=== PATIENT | male | born 1955 | race Caucasian/White ===

== ENCOUNTER 2017-12-30 09:15 | Emergency (ER) | payer BC ==
[2017-12-30 09:26] VITALS: BP 97/79
[2017-12-30] MEDS ORDERED: OXYCODONE-ACETAMINOPHEN 5-325 MG TABLET PO ONE (09:55)
--- NOTE | 2017-12-30 10:09 | ER Document Report ---
ED Extremity Problem, Lower - General Chief Complaint: Foot Injury Stated Complaint: FOOT INJURY Time Seen by Provider: 12/30/17 09:55 Mode of Arrival: Ambulatory Information source: Patient TRAVEL OUTSIDE OF THE [place] IN LAST 30 DAYS: No - HPI Patient complains to provider of: Other - Pain and swelling in the left foot 2 days after slipping through a floor board. Notes that it began to hurt and swell thereafter however he was able to bear weight on it. Denies any trauma elsewhere loss of consciousness pain numbness or weakness. Does have a history of peripheral neuropathy and does state that as a result has not probably hurt as much as it should. Has no significant surgical history has no significant medical history is seen regularly by and is a cigarette smoker. - Related Data Allergies/Adverse Reactions: codeine [Codeine] Allergy (Intermediate, Verified 12/30/17 09:20) rash Past Medical History - General Information source: Patient - Social History Smoking Status: Current Every Day Smoker Frequency of alcohol use: Occasional Drug Abuse: None Family History: Reviewed & Not Pertinent Patient has suicidal ideation: No Patient has homicidal ideation: No Renal/ Medical History: Denies: Hx Peritoneal Dialysis Past Surgical History: Reports: Hx Orthopedic Surgery - right rotator - Immunizations Hx Diphtheria, Pertussis, Tetanus Vaccination: Yes Review of Systems - Review of Systems -: Yes All other systems reviewed and negative Physical Exam - Vital signs Vitals: Temp Pulse Resp BP Pulse Ox 97.7 F 83 18 97/79 L 98 12/30/17 09:21 12/30/17 09:21 12/30/17 09:21 12/30/17 09:21 12/30/17 09:21 - General General appearance: Appears well In distress: None - HEENT Head: Normocephalic Eyes: Normal Conjunctiva: Normal Cornea: Normal Extraocular movements intact: Yes - Respiratory Respiratory status: No respiratory distress Chest status: Nontender Breath sounds: Normal Chest palpation: Normal - Cardiovascular Rhythm: Regular Heart sounds: Normal auscultation Murmur: No - Abdominal Inspection: Normal - Back Back: Normal - Extremities Foot: Other - Left foot is markedly swollen in comparison to the right, the swelling extends from the midfoot distally, there is marked tenderness along the metatarsal of the second digit, third digit, fourth digit No calcaneus tenderness, no medial or lateral malleoli or tenderness, no tenderness at the base of the fifth metatarsal - Neurological Neuro grossly intact: Yes Cognition: Normal Orientation: AAOx4 Hardeep Coma Scale Eye Opening: Spontaneous Hardeep Coma Scale Verbal: Oriented Hardeep Coma Scale Motor: Obeys Commands Hardeep Coma Scale Total: 15 Speech: Normal Cranial nerves: Normal Cerebellar coordination: Normal Motor strength normal: LUE, RUE, LLE, RLE Course - Re-evaluation Re-evalutation: Gentleman with pain and swelling in the left foot following a fall. Examination is no malleolar tenderness, no proximal fibular tenderness, no calcaneus tenderness no tenderness at the base of the fifth metatarsal. Tenderness through the second and third metatarsals. Plan will be for this patient undergo x-ray imaging with some analgesia while waiting. X-ray identifies a fracture of the second metatarsal as well as the third metatarsal and at the base of the first phalange. We will plan for this patient to undergo orthopedic evaluation, contacted Dr. Gutierrez. 12/30/17 10:51 Dr. Gutierrez agrees to see the patient in office, suggested a posterior splint. We will place patient in splint will give crutches teaching and will give a brief prescription of oral narcotic medication. Do not believe this represents a Lisfranc injury though it is not possible to entirely rule out given that we are not able to do weightbearing films. Patient will be seen in the orthopedics clinic for further evaluation. 12/30/17 11:00 - Vital Signs Vital signs: Temp Pulse Resp BP Pulse Ox 97.7 F 83 18 97/79 L 98 12/30/17 09:21 12/30/17 09:21 12/30/17 09:21 12/30/17 09:21 12/30/17 09:21 Discharge - Discharge Clinical Impression: Foot fracture, left Qualifiers: Encounter type: initial encounter Fracture type: closed Qualified Code(s): S92.902A - Unspecified fracture of left foot, initial encounter for closed fracture Fall Qualifiers: Encounter type: initial encounter Qualified Code(s): W19.XXXA - Unspecified fall, initial encounter Condition: Good Disposition: HOME, SELF-CARE Instructions: Use of Crutches (OM), Foot Fracture (OM) Additional Instructions: Your seen today in the emergency department for your broken foot. He had evaluation including a physical exam and x-rays. Your given crutches. Follow-up with the orthopedist this week for further evaluation of your broken foot. Return for worsening swelling, pain, inability to walk or feel your foot. Prescriptions: Hydrocodone/Acetaminophen [[place] 5-325 mg Tablet] 1 tab PO Q8H PRN #20 tablet PRN Reason: Forms: Smoking Cessation Education Referrals: MOOSE GUTIERREZ MD [ACTIVE STAFF] - Follow up in 1 week
--- NOTE | 2017-12-30 10:35 | RADIOLOGY REPORT (SQ) ---
EXAM DESCRIPTION: FOOT LEFT COMPLETE COMPLETED DATE/TIME: 12/30/2017 10:09 am REASON FOR STUDY: pain and swelling post fall COMPARISON: None. NUMBER OF VIEWS: Three views. TECHNIQUE: AP, lateral and oblique radiographic images acquired of the left foot. LIMITATIONS: None. FINDINGS: MINERALIZATION: Normal. BONES: Comminuted nondisplaced fracture distal 2nd metatarsal shaft. Nondisplaced fracture head of 3 rd metatarsal. Nondisplaced fracture medial margin base of 3rd metatarsal. Nondisplaced fracture la teral margin base of proximal 1st phalanx. JOINTS: Intact. SOFT TISSUES: Metal foreign bodies overlying the soft tissues plantar aspect proximal 5th metatarsal. OTHER: No other significant finding. IMPRESSION: Multiple fractures as described above. Metal foreign bodies. TECHNICAL DOCUMENTATION: JOB ID: [id number] [employer]- All Rights Reserved Reading location - IP/workstation name: [email or web address]
== END 2017-12-30 11:30 | disposition home or self-care (01) ==
LOC: ER 09:15
DX: S92.325A Nondisplaced fracture of second metatarsal bone, left foot, initial encounter for closed fracture (principal); S92.335A Nondisplaced fracture of third metatarsal bone, left foot, initial encounter for closed fracture; M79.672 Pain in left foot; W13.3XXA Fall through floor, initial encounter; G62.9 Polyneuropathy, unspecified; F17.210 Nicotine dependence, cigarettes, uncomplicated
CPT/HCPCS: 99283

== ENCOUNTER 2018-10-21 12:21 | Emergency (ER) | payer BC ==
--- NOTE | 2018-10-21 12:58 | ER Document Report ---
ED Medical Screen (RME) - General Chief Complaint: Laceration Stated Complaint: LACERATION Time Seen by Provider: 10/21/18 12:52 Mode of Arrival: Ambulatory Information source: Patient TRAVEL OUTSIDE OF THE [place]. IN LAST 30 DAYS: No - HPI Notes: 10/21/18 12:55 63-year-old male presents the ED for evaluation of a laceration to his left thumb from a razor blade approximately 2 hours ago. Bleeding is controlled. Tetanus is up-to-date. Denies any numbness or tingling in his left fingers. Has not tried any [id number] medication, pain is to a 10, throbbing achy. Able to move all fingers equally.Denies fevers, chills, chest pain,palpitations, shortness of breath, weakness, bowel or bladder dysfunction, saddle anesthesia, numbness or tingling in bilateral upper or lower extremities equally, muscle paralysis, weakness in bilateral upper or lower extremities equally or rash. Denies any bleeding disorders. ROS: Other than noted above, the 12 point review of systems was reviewed with the patient and were negative, all pertinent findings are included in the HPI. PHYSICAL EXAMINATION: Vital signs reviewed. GENERAL: Well-appearing, well-nourished and in no acute distress. HEAD: Atraumatic, normocephalic. NECK: Normal range of motion CV: Heart regular rate and rhythm LUNGS: No respiratory distress Musculoskeletal: Normal range of motion NEUROLOGICAL: Normal speech Skin: 2 cm irregular laceration to medial aspect of proximal thumb. bleeding controlled. normal abduction, adduction, extension, flexion and opposition of f ingers on left. PSYCH: Normal mood, normal affect. MDM: Patient seen and examined for rapid initial assessment. Vital signs reviewed. A comprehensive ED assessment and evaluation of the patient, analysis of test results and completion of the medical decision making process will be conducted by additional ED providers. *Note is created using voice recognition software and may contain spelling, syntax or grammatical errors. 10/21/18 12:57 - Related Data Allergies/Adverse Reactions: codeine [Codeine] Allergy (Intermediate, Verified 10/21/18 12:27) rash Past Medical History Renal/ Medical History: Denies: Hx Peritoneal Dialysis Past Surgical History: Reports: Hx Orthopedic Surgery - right rotator - Immunizations Hx Diphtheria, Pertussis, Tetanus Vaccination: Yes Physical Exam - Vital signs Vitals: Temp Pulse Resp BP Pulse Ox 97.5 F 70 20 151/100 H 98 10/21/18 12:26 10/21/18 12:26 10/21/18 12:26 10/21/18 12:26 10/21/18 12:26 Course - Vital Signs Vital signs: Temp Pulse Resp BP Pulse Ox 97.5 F 70 20 151/100 H 98 10/21/18 12:26 10/21/18 12:26 10/21/18 12:26 10/21/18 12:26 10/21/18 12:26
--- NOTE | 2018-10-21 13:14 | RADIOLOGY REPORT (SQ) ---
EXAM DESCRIPTION: FINGER LEFT COMPLETED DATE/TIME: 10/21/2018 1:05 pm REASON FOR STUDY: left thumb lac, r/o fx/fb COMPARISON: None. NUMBER OF VIEWS: Three views. TECHNIQUE: AP, lateral, and oblique images acquired of the left thumb. LIMITATIONS: None. FINDINGS: MINERALIZATION: Normal. BONES: No acute fracture or dislocation. No worrisome bone lesions. SOFT TISSUES: Soft tissue defect. No foreign bodies. OTHER: No other significant finding. IMPRESSION: Soft tissue defect. No underlying fracture or foreign body. TECHNICAL DOCUMENTATION: JOB ID: [id number] [employer]- All Rights Reserved Reading location - IP/workstation name: [email or web address]
[2018-10-21] MEDS ORDERED: LIDOCAINE 1% INJ-PF (10 MG/ML) 30 ML SDV INJ ONE (14:34)
--- NOTE | 2018-10-21 14:34 | ER Document Report ---
ED Wound - General Chief Complaint: Laceration Stated Complaint: LACERATION Time Seen by Provider: 10/21/18 12:52 Mode of Arrival: Ambulatory Notes: Pleasant 63-year-old male to the emergency department after laceration to the left thumb. Used a wood box maker knife slipped. Lacerated the left thumb distal to the webspace in between the proximal and distal phalangeal joint on the left. Bleeding is controlled. No significant loss of function does have some numbness. No other injuries. Up-to-date on his tetanus. TRAVEL OUTSIDE OF THE [place] IN LAST 30 DAYS: No - HPI Patient complains to provider of: Laceration Occurred: Just prior to arrival Quality of pain: Throbbing Severity: Moderate Pain Level: 2 Context: Injury - Related Data Allergies/Adverse Reactions: codeine [Codeine] Allergy (Intermediate, Verified 10/21/18 12:27) rash Past Medical History - General Information source: Patient - Social History Smoking Status: Current Some Day Smoker Lives with: Alone Family History: Reviewed & Not Pertinent Patient has suicidal ideation: No Patient has homicidal ideation: No - Medical History Medical History: Negative Renal/ Medical History: Denies: Hx Peritoneal Dialysis Past Surgical History: Reports: Hx Orthopedic Surgery - right rotator - Immunizations Hx Diphtheria, Pertussis, Tetanus Vaccination: Yes Review of Systems - Review of Systems Constitutional: denies: Chills, Diaphoresis, Weakness Cardiovascular: denies: Chest pain, Palpitations, Heart racing Respiratory: denies: Cough, Hurts to breathe, Short of breath Musculoskeletal: See HPI, Other - Loss of function to the hand. Laceration to the left thumb. Skin: See HPI, Other - Laceration, bleeding Neurological/Psychological: See HPI, Numbness. denies: Weakness, Paralysis Physical Exam - Vital signs Vitals: Temp Pulse Resp BP Pulse Ox 97.5 F 70 20 151/100 H 98 10/21/18 12:26 10/21/18 12:26 10/21/18 12:26 10/21/18 12:26 10/21/18 12:26 Interpretation: Normal - General General appearance: Appears well, Alert - Respiratory Respiratory status: No respiratory distress Chest status: Nontender Breath sounds: Normal Chest palpation: Normal - Cardiovascular Rhythm: Regular Heart sounds: Normal auscultation Murmur: No - Extremities General upper extremity: Tender, Normal color, Normal ROM, Normal strength, Other - The left upper extremity hand function neurovascularly intact. Tendons intact. Strength intact. Mild decrease in sensation around the laceration on the left thumb. There is a 1.5 linear laceration on the medial aspect of the left thumb between the proximal and distal phalangeal joint of digit #1. Post tendons. The bleeding is controlled.. No: Edema - Skin Skin Temperature: Warm Skin Moisture: Dry Skin Color: Normal, Other - 1.5 cm linear laceration left thumb as described above. Course - Re-evaluation Re-evalutation: 10/21/18 15:32 Laceration was repaired. Tetanus is updated. No complications. Patient tolerated procedure well. Will DC in stable condition - Vital Signs Vital signs: Temp Pulse Resp BP Pulse Ox 97.9 F 59 L 16 155/86 H 98 10/21/18 13:31 10/21/18 13:31 10/21/18 13:31 10/21/18 13:31 10/21/18 13:31 Procedures - Laceration/Wound Repair Left Finger Thumb Wound length (cm): 1.5 Wound's Depth, Shape: Linear Laceration pre-procedure: Betadine prep applied, Sterile drapes applied Anesthetic type: 1% Lidocaine Volume Anesthetic (mLs): 6 Wound explored: Clean, No foreign body removed Wound Repaired With: Sutures Suture Size/Type: 4:0, Prolene Number of Sutures: 6 Layer Closure?: No Post-procedure NV exam normal: Yes Complications: No Discharge - Discharge Clinical Impression: Laceration of thumb Qualifiers: Encounter type: initial encounter Damage to nail status: without damage Foreign body presence: without foreign body Laterality: left Qualified Code(s): S61.012A - Laceration without foreign body of left thumb without damage to nail, initial encounter Condition: Good Disposition: HOME, SELF-CARE Instructions: Antibiotic Ointment Protection ([facility]), Laceration Care ([facility]) Additional Instructions: Sutures out in 10 to 14 days. Return for any signs of redness, or signs of infection. You may return here for suture removal her father up with a primary care provider. Keep the wound clean and dry for the next 24 hours. Forms: Return to Work
[2018-10-21 15:44] VITALS: BP 144/80
== END 2018-10-21 15:45 | disposition home or self-care (01) ==
LOC: ER 12:21
DX: S61.012A Laceration without foreign body of left thumb without damage to nail, initial encounter (principal); W45.8XXA Other foreign body or object entering through skin, initial encounter; R20.0 Anesthesia of skin; F17.200 Nicotine dependence, unspecified, uncomplicated; Z88.5 Allergy status to narcotic agent
CPT/HCPCS: 99282; 73140; 12001; J3490

== ENCOUNTER 2018-12-08 11:13 | Emergency (ER) | payer OTHER ==
[2018-12-08 11:19] VITALS: BP 134/78
--- NOTE | 2018-12-08 11:48 | ER Document Report ---
HPI - HPI Time Seen by Provider: 12/08/18 11:35 Pain Level: 3 Notes: Patient is a 63-year-old male with a history of a recurring rash primarily to his hands and arms for the past 3 months who presents complaining of recurrence of the rash over the past 2 to 3 weeks with a couple spots showing up on his legs. 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 He has occasional itching associated. He is not aware of any exposure to chemicals, detergents, soaps, foods. No known insect bite including tick bites. No recent illness. Patient states that he lost his insurance in the past couple weeks and has not been able to follow-up. He is working on caring [facility] paperwork. Denies any headache, fever, neck pain, URI, sore throat, chest pain, palpitations, syncope, cough, shortness of breath, wheeze, dyspnea, abdominal pain, nausea/vomiting/diarrhea, urinary retention, dysuria, hematuria, loss of control of bowel or bladder, numbness/tingling, saddle anesthesia, muscle paralysis/weakness. - ROS Systems Reviewed and Negative: Yes All other systems reviewed and negative - EENT EENT: DENIES: Sore Throat, Ear Pain, Eye problems - NEURO Neurology: DENIES: Headache, Weakness, Vision blurred, Dizzinesss / Vertigo - CARDIOVASCULAR Cardiovascular: DENIES: Chest pain - RESPIRATORY Respiratory: DENIES: Trouble Breathing, Coughing - GASTROINTESTINAL Gastrointestinal: DENIES: Abdominal Pain, Black / Bloody Stools - URINARY Urinary: DENIES: Dysuria, Urgency, Frequency - MUSCULOSKELETAL Musculoskeletal: DENIES: Extremity pain Past Medical History - Social History Smoking Status: Never Smoker Family History: Reviewed & Not Pertinent Patient has suicidal ideation: No Patient has homicidal ideation: No Renal/ Medical History: Denies: Hx Peritoneal Dialysis Past Surgical History: Reports: Hx Orthopedic Surgery - right rotator - Immunizations Hx Diphtheria, Pertussis, Tetanus Vaccination: Yes Vertical Provider Document - CONSTITUTIONAL Agree With Documented VS: Yes Notes: PHYSICAL EXAMINATION: GENERAL: Well-appearing, well-nourished and in no acute distress. HEAD: Atraumatic, normocephalic. EYES: Pupils equal round and reactive to light, extraocular movements intact, sclera anicteric, conjunctiva are normal. ENT: Nares patent and without discharge. oropharynx clear without exudates. No tonsilar hypertrophy or erythema. Moist mucous membranes. No sinus tenderness. NECK: Normal range of motion, supple without lymphadenopathy LUNGS: Breath sounds clear to auscultation bilaterally and equal. No wheezes rales or rhonchi. HEART: Regular rate and rhythm without murmurs, rubs, gallops. ABDOMEN: Soft, nontender, nondistended abdomen. No guarding, no rebound. No masses appreciated. Normal bowel sounds present. No CVA tenderness bilaterally. Musculoskeletal: FROM to passive/active. Strength 5+/5. Extremities: No cyanosis, clubbing, or edema b/l. Peripheral pulses 2+. Capillary refill less than 3 seconds. NEUROLOGICAL: Cranial nerves grossly intact. Normal speech, normal gait. Normal sensory, motor exams PSYCH: Normal mood, normal affect. SKIN: The rash is primarily to his hands and forearms which are mildly erythemic with a pink center surrounded by a pale ring border and are maculopapular in nature as well. There are other sizes of the lesions near these other bordered areas as well. There are just a few well-circumscribed lesions to the legs bilaterally. No induration, fluctuance, purulence, streaks, necrosis, sloughing of skin, or tenderness associated. - INFECTION CONTROL TRAVEL OUTSIDE OF THE [place] IN LAST 30 DAYS: No Course - Re-evaluation Re-evalutation: 12/08/18 11:47 Patient is an afebrile, well-hydrated, 63-year-old male who presents with a nonspecific skin rash, I do suspect erythema multiforme and I did show pictures to the patient that have the exact same appearance and patterns. Vitals are acceptable without significant tachycardia, tachypnea, or hypoxia. PE is otherwise unremarkable. Patient is nontoxic-appearing and is tolerating p.o. without difficulty. No work-up warranted at this time. Low suspicion for any necrotizing fasciitis, SJS, SSS, drug reaction, sepsis, meningitis, syphilis, Lyme disease, [place] spotted fever, or other systemic emergent condition at this time. Patient aware that condition can change from initial presentation and he needs to monitor symptoms closely and seek medical attention with any acute changes. Patient given Solu-Medrol today and I will send him home with a prescription for steroids at home. Recheck with your PCM in 3-5 days. Schedule consult with dermatology. Return to the ED with any other worsening/concerning symptoms as reviewed. Patient is in agreement. - Vital Signs Vital signs: Temp Pulse Resp BP Pulse Ox 97.7 F 66 18 134/78 H 96 12/08/18 11:18 12/08/18 11:18 12/08/18 11:18 12/08/18 11:18 12/08/18 11:18 Discharge - Discharge Clinical Impression: Rash and nonspecific skin eruption, Erythema multiforme Condition: Stable Disposition: HOME, SELF-CARE Instructions: Erythema Multiforme ([facility]) Additional Instructions: Keep the skin clean Wash with soap and water Tylenol/ibuprofen if needed Take medication as directed Monitor for any worsening symptoms Recheck with your PCM in 3-5 days Schedule consult with dermatology Return to the ED with any worsening symptoms and/or development of fever, headache, chest pain, palpitations, syncope, shortness of breath, trouble breathing, abdominal pain, n/v/d, abscess, purulent discharge, red streaks, worsening swelling, or other worsening symptoms that are concerning to you. Prescriptions: Prednisone [Deltasone 10 mg Tablet] 10 mg PO DAILY #18 tablet Forms: Elevated Blood Pressure Referrals: EDNA MUNOZ DO [ACTIVE STAFF] - Follow up as needed
[2018-12-08] MEDS ORDERED: METHYLPREDNISOLONE INJ 125 MG/2 ML SDV IM ONE (11:50)
== END 2018-12-08 12:10 | disposition home or self-care (01) ==
LOC: ER 11:13
DX: L51.9 Erythema multiforme, unspecified (principal)
CPT/HCPCS: 96372; 99282; J2930

== ENCOUNTER → 2018-12-12 | Outpatient (CLI) | payer OTHER ==
[2018-12-12 09:43] LABS: ABSOLUTE BASOPHILS # (AUTO) 0.1 10^3/uL (0.0-0.2); ABSOLUTE EOSINOPHILS # (AUTO) 0.1 10^3/uL (0.0-0.6); ABSOLUTE LYMPHOCYTES (AUTO) 5.1 10^3/uL (0.5-4.7); ABSOLUTE MONOCYTES (AUTO) 0.8 10^3/uL (0.1-1.4); ABSOLUTE NEUT (AUTO) 5.9 10^3/uL (1.7-8.2); BASOPHILS % (AUTO) 0.6 % (0-2); EOSINOPHILS % (AUTO) 0.9 % (0-6); HEMOGLOBIN 13.6 g/dL (13.5-17.0); LYMPHOCYTES % (AUTO) 42.6 % (13-45); MEAN CORPUSCULAR HEMOGLOBIN 29.7 pg (27.0-33.4); MEAN CORPUSCULAR HGB CONC 33.2 g/dL (32.0-36.0); MEAN CORPUSCULAR VOLUME 90 fl (80-97); MONOCYTES % (AUTO) 6.6 % (3-13); PLATELET COUNT 746 10^3/uL (150-450); RED BLOOD COUNT 4.58 10^6/uL (4.35-5.55); RED CELL DISTRIBUTION WIDTH 14.2 % (11.5-14.0); SEGMENTED NEUTROPHILS % (AUTO) 49.3 % (42-78); TOTAL CELLS COUNTED % (AUTO) 100 %
[2018-12-12 09:58] LABS: ALBUMIN 3.5 g/dL (3.5-5.0); ALKALINE PHOSPHATASE 35 U/L (38-126); ANION GAP 7 (5-19); ASPARTATE AMINO TRANSFERASE 23 U/L (17-59); BILIRUBIN,DIRECT 0.2 mg/dL (0.0-0.4); BILIRUBIN,TOTAL 0.4 mg/dL (0.2-1.3); BLOOD UREA NITROGEN 17 mg/dL (7-20); CALCIUM 9.6 mg/dL (8.4-10.2); CARBON DIOXIDE 29 mmol/L (22-30); CHLORIDE 106 mmol/L (98-107); CHOLESTEROL 122.71 mg/dL (0-200); GLUCOSE 95 mg/dL (75-110); POTASSIUM 4.8 mmol/L (3.6-5.0); TOTAL PROTEIN 6.6 g/dL (6.3-8.2); TRIGLYCERIDES 158 mg/dL (<150)
[2018-12-12 10:09] LABS: DIRECT LDL 89 mg/dL (<100)
[2018-12-12 10:11] LABS: VLDL CHOLESTEROL 31.6 mg/dL (10-31)
== END ==
LOC: CCC 08:28
DX: B34.9 Viral infection, unspecified (principal)
CPT/HCPCS: 36415; 80053; 80061; 83036; 84443; 85025; 86038; 86141

== ENCOUNTER 2018-12-23 10:33 | Emergency (ER) | payer OTHER ==
[2018-12-23 10:42] VITALS: BP 125/81
--- NOTE | 2018-12-23 11:04 | ER Document Report ---
HPI - HPI Patient complains to provider of: rash Time Seen by Provider: 12/23/18 10:44 Onset: Other Onset/Duration: Persistent Severity: None Pain Level: 0 Context: This 63-year-old male presents emergency department with a rash to his bilateral forearms. Patient reports he has had this rash on and off for the past 6 months. He has been treated by a military aircraft designer who he reports he did not know what it was. He recently lost his insurance so the military aircraft designer dropped him. He reports he was treated here several weeks ago for possibly erythema multiforme. He reports he will be prescribed steroids and as soon as the steroids are finished the rash will come back. Reports he has a little bit of a rash on the right lateral knee but nowhere else on his body. Reports the rash is itchy. Is from his biceps to his hands in the webs of his fingers. He denies fever vomiting diarrhea. Past Medical History - General Information source: Patient - Social History Smoking Status: Never Smoker Cigarette use (# per day): No Frequency of alcohol use: None Drug Abuse: None Occupation: Retired Lives with: Family Family History: Reviewed & Not Pertinent Patient has suicidal ideation: No Patient has homicidal ideation: No - Medical History Medical History: Negative Renal/ Medical History: Denies: Hx Peritoneal Dialysis Past Surgical History: Reports: Hx Orthopedic Surgery - right rotator - Immunizations Hx Diphtheria, Pertussis, Tetanus Vaccination: Yes Vertical Provider Document - CONSTITUTIONAL Agree With Documented VS: Yes Exam Limitations: No Limitations General Appearance: WD/WN, No Apparent Distress - INFECTION CONTROL TRAVEL OUTSIDE OF THE [place] IN LAST 30 DAYS: No - HEENT HEENT: Atraumatic, Normocephalic - NECK Neck: Supple - RESPIRATORY Respiratory: Breath Sounds Normal, No Respiratory Distress - CARDIOVASCULAR Cardiovascular: Regular Rate - MUSCULOSKELETAL/EXTREMETIES Musculoskeletal/Extremeties: MAEW, FROM, Non-Tender - NEURO Level of Consciousness: Awake, Alert, Appropriate Motor/Sensory: No Motor Deficit - DERM Integumentary: Warm, Dry, Rash Adult Front & Back Diagram: 1 - erythemic irregular blanching macules and papules, no vesicles from hands to biceps bilaterally, no open wounds no open sores Course - Re-evaluation Re-evalutation: 12/23/18 13:03 63-year-old male presents with complaints of itchy rash for the past 6 months that comes and goes. Reports he goes away after he was treated with steroids. Denies fever vomiting diarrhea. Patient will be treated with steroids this time also. He has an appointment with the [facility] since our hope they may refer him to a military aircraft designer. He was instructed to try to avoid itching take Benadryl as indicated apply cool packs when the itch is unbearable. He was also instructed to return to the emergency department for any signs of infection. He verbalized understanding to all instructions. Dictation of this chart was performed using voice recognition software; therefore, there may be some unintended grammatical errors. - Vital Signs Vital signs: Temp Pulse Resp BP Pulse Ox 97.5 F 63 16 125/81 96 12/23/18 10:41 12/23/18 10:41 12/23/18 10:41 12/23/18 10:41 12/23/18 10:41 Discharge - Discharge Clinical Impression: Rash and nonspecific skin eruption Condition: Stable Disposition: HOME, SELF-CARE Instructions: Chemical Dependency Therapist, Steroid Medication Additional Instructions: *You have been treated for a chronic rash *Take medication as prescribed *Avoid itching apply cool packs as indicated to calm the itch. Take Benadryl as indicated. Monitor your skin for signs of infection such as pain, increased redness, swelling, warmth *Follow up with the [facility] as scheduled for evaluation and referral to dermatology as indicated *Return to ED for signs of infection, worsening condition, changes, needs Prescriptions: Prednisone [Deltasone 10 mg Tablet] 10 mg PO ASDIR PRN #21 tablet PRN Reason: Forms: Elevated Blood Pressure Referrals: [facility] [Primary Care Provider] - 01/08/19
== END 2018-12-23 11:14 | disposition home or self-care (01) ==
LOC: ER 10:33
DX: R21 Rash and other nonspecific skin eruption (principal); L29.8 Other pruritus
CPT/HCPCS: 99282

== ENCOUNTER 2019-04-13 16:00 | Inpatient (IN) | payer MEDICARE, OTHER ==
--- NOTE | 2019-04-13 16:32 | ER Document Report ---
ED Medical Screen (RME) - General Chief Complaint: Low Back Pain Stated Complaint: LOWER BACK PAIN Time Seen by Provider: 04/13/19 16:28 Primary Care Provider: GWENDOLYN DAHL [Primary Care Provider] - Follow up as needed Mode of Arrival: Wheelchair Information source: Patient Notes: 64-year-old male presented to ED for complaint of low back pain. He states he fell on the way to the bathroom due to the pain in his lower back. When he got to the toilet he had a large bloody bowel movement and had has been bloody since then. Least 5 or 6 bloody stools he states he has no history of anything that should cause him to have bloody stools. He states he has never had a colonoscopy. He states he very rarely goes to see a doctor. He states he smokes maybe 1 or 2 cigarettes a week, he states he drinks a couple beers a day, and he denies any kind of illicit drugs. I have greeted and performed a rapid initial assessment of this patient. A comprehensive ED assessment and evaluation of the patient, analysis of test results and completion of medical decision making process will be conducted by an additional ED providers. TRAVEL OUTSIDE OF THE [place] IN LAST 30 DAYS: No - Related Data Allergies/Adverse Reactions: codeine [Codeine] Allergy (Intermediate, Verified 12/23/18 10:58) rash Past Medical History Renal/ Medical History: Denies: Hx Peritoneal Dialysis Past Surgical History: Reports: Hx Orthopedic Surgery - right rotator - Immunizations Hx Diphtheria, Pertussis, Tetanus Vaccination: Yes Physical Exam - Vital signs Vitals: Temp Pulse Resp BP Pulse Ox 97.7 F 64 18 152/84 H 96 04/13/19 16:05 04/13/19 16:05 04/13/19 16:05 04/13/19 16:05 04/13/19 16:05 Course - Vital Signs Vital signs: Temp Pulse Resp BP Pulse Ox 97.7 F 64 18 152/84 H 96 04/13/19 16:05 04/13/19 16:05 04/13/19 16:05 04/13/19 16:05 04/13/19 16:05 Doctor's Discharge - Discharge Referrals: GWENDOLYN DAHL [Primary Care Provider] - Follow up as needed
[2019-04-13] MEDS ORDERED: NORMAL SALINE 1000 ML 1,000 ML IV ONE (16:34)
[2019-04-13] MEDS ORDERED: MORPHINE SULFATE 10 MG/ML INJ IV ONE ×2 (17:37→19:08)
--- NOTE | 2019-04-13 17:38 | ER Document Report ---
ED GI Bleed / Rectal Pain - General Chief Complaint: Bloody Stools Stated Complaint: LOWER BACK PAIN Time Seen by Provider: 04/13/19 16:28 Mode of Arrival: Wheelchair Notes: Patient is a 64-year-old male who presents to the emergency department with a chief complaint of rectal bleeding. Patient states that he had back pain that started yesterday, along with hematochezia stools that started yesterday. Patient also states that he went to go to the bathroom ended up falling. Patient is able to walk. Patient has never had a colonoscopy before. He does not take any medications. Patient also has not really been to a primary care provider in the past couple years. TRAVEL OUTSIDE OF THE [place] IN LAST 30 DAYS: No - Related Data Allergies/Adverse Reactions: codeine [Codeine] Allergy (Intermediate, Verified 12/23/18 10:58) rash Past Medical History - General Information source: Patient - Social History Smoking Status: Current Every Day Smoker Frequency of alcohol use: Heavy Drug Abuse: None Family History: Reviewed & Not Pertinent Patient has suicidal ideation: No Patient has homicidal ideation: No Renal/ Medical History: Denies: Hx Peritoneal Dialysis Past Surgical History: Reports: Hx Orthopedic Surgery - right rotator - Immunizations Hx Diphtheria, Pertussis, Tetanus Vaccination: Yes Review of Systems - Review of Systems Notes: REVIEW OF SYSTEMS: CONSTITUTIONAL : Denies recent illness. Denies recent unintentional weight loss. Denies fever, chills, or sweats. EENT: Denies eye, ear, throat, or mouth pain, discharge, or symptoms. Denies nasal or sinus congestion. CARDIOVASCULAR: Denies chest pain. RESPIRATORY: Denies shortness of breath, cough, congestion, difficulty breathing, or wheezing. GASTROINTESTINAL: See HPI. GENITOURINARY: Denies difficulty urinating, burning, blood in urine, urgency or frequency. MUSCULOSKELETAL: See HPI. Denies joint pain or swelling. SKIN: Denies rash, itchiness, or lesions HEMATOLOGIC : Denies easy bruising or bleeding. LYMPHATIC: Denies swollen, painful, enlarged glands. NEUROLOGICAL: Denies no numbness or tingling denies weakness. Denies headache. Denies altered mental status. Denies alteration in speech. PSYCHIATRIC: Denies stress, anxiety, alteration in sleep patterns, or depression. All other systems reviewed and negative. Physical Exam - Vital signs Vitals: Temp Pulse Resp BP Pulse Ox 97.7 F 64 18 152/84 H 96 04/13/19 16:05 04/13/19 16:05 04/13/19 16:05 04/13/19 16:05 04/13/19 16:05 - Notes Notes: PHYSICAL EXAMINATION: GENERAL: Appears well, healthy, well-nourished, no acute distress. HEAD: Normocephalic, atraumatic. EYES: PERRL, conjunctiva normal, all extraocular movements intact, sclera nonicteric ENT: Moist mucous membranes. NECK: Supple, no noticeable swelling, redness, rash. Normal range of motion. LUNGS: Equal breath sounds bilaterally and clear to auscultation. No wheezes rales or rhonchi. CARDIOVASCULAR: S1-S2, regular rate, regular rhythm. Radial pulses 2+, normal. ABDOMEN: Normoactive bowel sounds. Soft, nontender, no guarding, no rebound tenderness, and no masses palpated. EXTREMITIES: Normal strength and range of motion, no pitting or edema. No cyanosis. NEUROLOGICAL: Moves all extremities upon command. Strength 5/5 in all extremities. PSYCH: Normal mood, normal affect. SKIN: Warm, dry. No rash, lesions, ulcerations noted. Normal skin turgor. RECTAL: No candelario red blood noted. Hemoccult positive. Course - Re-evaluation Re-evalutation: 04/13/19 17:31 Rectal exam done with ADAM Rizvi at bedside. No candelario blood noted, but occult stool positive. Patient will be sent for CT of the abdomen and pelvis. 04/13/19 20:31 White blood cell count of 13,600. Chemistries are unremarkable. CT of the abdomen pelvis show diverticulosis. It also shows wall thickening of the colon at the terminal ileum suspected of inflammatory bowel disease. There is also a renal mass noted.I spoke with Dr. Rivera, he would like patient to be admitted under the hospitalist service. 04/13/19 20:42 Dr. Darby will admit the patient to the medical floor. - Vital Signs Vital signs: Temp Pulse Resp BP Pulse Ox 97.8 F 50 L 19 140/74 H 99 04/15/19 12:46 04/15/19 12:46 04/15/19 12:46 04/15/19 12:46 04/15/19 12:46 - Laboratory Result Diagrams: 04/15/19 04:28 04/15/19 04:28 Laboratory results interpreted by me: 04/13/19 04/13/19 17:23 17:23 WBC 13.6 H RBC 6.06 H Hgb 18.2 H Hct 54.3 H RDW 15.0 H Absolute Neuts (auto) 9.3 H Calcium 10.4 H Discharge - Discharge Clinical Impression: GI bleed, Inflammatory bowel disease Condition: Good Disposition: ADMITTED INPATIENT Admitting Provider: Wilner (Hospitalist) Unit Admitted: Medical Floor
[2019-04-13 17:43] LABS: ABSOLUTE BASOPHILS # (AUTO) 0.1 10^3/uL (0.0-0.2); ABSOLUTE EOSINOPHILS # (AUTO) 0.2 10^3/uL (0.0-0.6); ABSOLUTE LYMPHOCYTES (AUTO) 2.9 10^3/uL (0.5-4.7); ABSOLUTE MONOCYTES (AUTO) 1.1 10^3/uL (0.1-1.4); ABSOLUTE NEUT (AUTO) 9.3 10^3/uL (1.7-8.2); BASOPHILS % (AUTO) 0.6 % (0-2); EOSINOPHILS % (AUTO) 1.5 % (0-6); HEMATOCRIT 54.3 % (37.9-51.0); HEMOGLOBIN 18.2 g/dL (13.5-17.0); LYMPHOCYTES % (AUTO) 21.6 % (13-45); MEAN CORPUSCULAR HGB CONC 33.5 g/dL (32.0-36.0); MEAN CORPUSCULAR VOLUME 90 fl (80-97); MONOCYTES % (AUTO) 8.1 % (3-13); PLATELET COUNT 431 10^3/uL (150-450); RED BLOOD COUNT 6.06 10^6/uL (4.35-5.55); SEGMENTED NEUTROPHILS % (AUTO) 68.2 % (42-78); TOTAL CELLS COUNTED % (AUTO) 100 %; WHITE BLOOD COUNT 13.6 10^3/uL (4.0-10.5)
[2019-04-13 18:10] LABS: ALBUMIN 4.3 g/dL (3.5-5.0); ALKALINE PHOSPHATASE 44 U/L (38-126); ANION GAP 9 (5-19); ASPARTATE AMINO TRANSFERASE 27 U/L (17-59); BILIRUBIN,TOTAL 0.7 mg/dL (0.2-1.3); BLOOD UREA NITROGEN 9 mg/dL (7-20); CALCIUM 10.4 mg/dL (8.4-10.2); CARBON DIOXIDE 26 mmol/L (22-30); CHLORIDE 105 mmol/L (98-107); GLUCOSE 92 mg/dL (75-110); POTASSIUM 4.9 mmol/L (3.6-5.0)
--- NOTE | 2019-04-13 19:32 | RADIOLOGY REPORT (SQ) ---
EXAM DESCRIPTION: CT ABD/PELVIS WITH IV ONLY COMPLETED DATE/TIME: 04/13/2019 6:48 pm REASON FOR STUDY: abdominal/back pain with rectal bleeding COMPARISON: None. TECHNIQUE: CT scan of the abdomen and pelvis performed using helical scanning technique with dynamic intravenous contrast injection. No oral contrast. Images reviewed with lung, soft tissue, and bone windows. Reconstructed coronal and sagittal MPR images reviewed. Delayed images for evaluation of the urinary system also acquired. All images stored on PACS. All CT scanners at this facility use dose modulation, iterative reconstruction, and/or weight based d osing when appropriate to reduce radiation dose to as low as reasonably achievable (ALARA). [facility]: Dose Right [facility]: CareDose [facility]: Dose Right [facility]: Teradose 4D [facility]: MiMedia CONTRAST TYPE AND DOSE: contrast/concentration: Isovue 350.00 mg/ml; Total Contrast Delivered: 88.0 ml; Total Saline Delivered: 68.0 ml RENAL FUNCTION: BUN 9 creatinine 1.05 RADIATION DOSE: CT Rad equipment meets quality standard of care and radiation dose reduction techniq ues were employed. CTDIvol: 9.0 - 12.7 mGy. DLP: 1231 mGy-cm.. LIMITATIONS: None. FINDINGS: LOWER CHEST: No significant findings. No nodules or infiltrates. LIVER: Normal size. No masses. No dilated ducts. SPLEEN: Normal size. No focal lesions. PANCREAS: No masses. No significant calcifications. No adjacent inflammation or peripancreatic fluid collections. Pancreatic duct not dilated. GALLBLADDER: No identified stones by CT criteria. No inflammatory changes to suggest cholecystitis. ADRENAL GLANDS: No significant masses or asymmetry. RIGHT KIDNEY AND URETER: No solid masses. No significant calcifications. No hydronephrosis or hyd roureter. LEFT KIDNEY AND URETER: Cannot exclude a somewhat low-density left renal mass that is contiguous with a cortical cyst. See images 30 through 34 series 5. See image 71 series 602. No significant calc ifications. No hydronephrosis or hydroureter. AORTA AND VESSELS: No aneurysm. No dissection. Renal arteries, SMA, celiac without stenosis. RETROPERITONEUM: No retroperitoneal adenopathy, hemorrhage or masses. BOWEL AND PERITONEAL CAVITY: Wall thickening in the colon. Sigmoid diverticulosis with no definite a cute inflammatory changes. Thickening of the terminal ileum. APPENDIX: Normal. PELVIS: No mass. No free fluid. Normal bladder. ABDOMINAL WALL: No masses. No hernias. BONES: No significant or acute findings. OTHER: No other significant finding. IMPRESSION: 1. Cannot exclude a low-density left renal mass that is contiguous with a cyst. Recomm end ultrasound. A posterior intercostal approach may be helpful. 2. Diverticulosis coli. 3. Wall thickening in the colon and terminal ileum concerning for inflammatory bowel disease. Corre late clinically. TECHNICAL DOCUMENTATION: JOB ID: [id number] Quality ID # [id number]: Final reports with documentation of one or more dose reduction techniques (e.g., Au tomated exposure control, adjustment of the mA and/or kV according to patient size, use of iterative reconstruction technique) 2010 [email or web address]- All Rights Reserved Reading location - IP/workstation name: [email or web address]
[2019-04-13] MEDS ORDERED: NICOTINE 21 MG/24 HR PATCH.TD24 TD PRN (20:41)
[2019-04-13] MEDS ORDERED: HYDRALAZINE HCL INJ/PF 20 MG/1 ML SDV IV PRN (20:41)
[2019-04-13] MEDS ORDERED: MAGNESIUM HYDROXIDE SUSP 30 ML UDCUP PO PRN (20:41)
[2019-04-13] MEDS ORDERED: LORAZEPAM INJ 2 MG/1 ML VIAL IV PRN (20:41)
[2019-04-13] MEDS ORDERED: CHLORPROMAZINE HCL INJ 25 MG/1 ML AMPULE IV PRN (20:41)
[2019-04-13] MEDS ORDERED: MORPHINE SULFATE 10 MG/ML INJ IV PRN ×2 (20:41)
[2019-04-13] MEDS ORDERED: ACETAMINOPHEN 325 MG TABLET PO PRN (20:41)
[2019-04-13] MEDS ORDERED: MELATONIN 5 MG TABLET PO PRN (20:41)
[2019-04-13] MEDS ORDERED: MAG HYDROX/AL HYDROX/SIMETH SUSP 30 ML UDCUP PO PRN (20:41)
[2019-04-13] MEDS ORDERED: LEVALBUTEROL HCL NEB 0.63 MG/3 ML AMPUL NEB PRN (20:41)
--- NOTE | 2019-04-13 20:48 | PDOC CONSULTATION ---
Consultation Consult Date: 04/13/19 Provider Consulted: LYDIA ELI Consult reason:: bright red blood per rectum History of Present Illness History of Present Illness: ALEXANDRO ORO is a 64 year old male presented to the ED with hematochezia hgb stable no active bleeding for now had CT scan that showed diverticulosis however has some thickening of the terminal ileum, radiologist is concerned for possible IBD however no previous history he more likely is having diverticular bleeding will however need a colonoscopy to evaluate the terminal ileum no hemodynamic instablity agree with admission follow up H/H will prep for colonoscopy Past Surgical History Past Surgical History: Reports: Orthopedic Surgery - right rotator Social History Smoking Status: Current Every Day Smoker Family History Family History: Reviewed & Not Pertinent Parental Family History Reviewed: Yes Children Family History Reviewed: Unknown Sibling(s) Family History Reviewed.: Unknown Medication/Allergy Home Medications: Docusate Sodium [Colace 100 mg Capsule] 100 mg PO DAILY #30 capsule 11/07/14 Oxycodone HCl 5 mg PO Q6 #30 tablet 11/07/14 Hydrocodone/Acetaminophen [[place] 5-325 mg Tablet] 1 tab PO Q8H PRN #20 tablet 12/30/17 Prednisone [Deltasone 10 mg Tablet] 10 mg PO DAILY #18 tablet 12/08/18 Prednisone [Deltasone 10 mg Tablet] 10 mg PO ASDIR PRN #21 tablet 12/23/18 Allergies/Adverse Reactions: codeine [Codeine] Allergy (Intermediate, Verified 12/23/18 10:58) rash Review of Systems Constitutional: ABSENT: fever(s), headache(s), night sweats, weakness Eyes: ABSENT: visual disturbances Ears: ABSENT: hearing changes Cardiovascular: ABSENT: chest pain, dyspnea on exertion Respiratory: ABSENT: dyspnea, hemoptysis Gastrointestinal: ABSENT: dysphagia, nausea, vomiting Genitourinary: ABSENT: dysuria, hematuria Musculoskeletal: ABSENT: deformity, joint swelling Integumentary: ABSENT: pruritus Neurological: ABSENT: syncope, tingling, tremor(s), vertigo Endocrine: ABSENT: polydipsia, polyphagia, polyuria Hematologic/Lymphatic: ABSENT: easy bruising Physical Exam Vital Signs: Temp Pulse Resp BP Pulse Ox 97.7 F 64 13 112/74 96 04/13/19 16:05 04/13/19 16:05 04/13/19 20:01 04/13/19 20:01 04/13/19 20:01 Intake & Output 04/12/19 04/13/19 04/14/19 06:59 06:59 06:59 Intake Total 1000 Balance 1000 Weight 76.9 kg General appearance: PRESENT: no acute distress Head exam: PRESENT: atraumatic, normocephalic Eye exam: PRESENT: EOMI, PERRLA. ABSENT: nystagmus, scleral icterus Mouth exam: PRESENT: neck supple Neck exam: ABSENT: meningismus, tenderness, thyromegaly Respiratory exam: PRESENT: symmetrical, unlabored. ABSENT: tachypnea, wheezes Cardiovascular exam: PRESENT: RRR, +S1, +S2 GI/Abdominal exam: PRESENT: Pascual's sign, normal bowel sounds, soft. ABSENT: rebound, rigid Extremities exam: ABSENT: joint swelling, tenderness Musculoskeletal exam: PRESENT: full ROM Neurological exam: PRESENT: alert, awake, CN II-XII grossly intact Skin exam: PRESENT: normal color. ABSENT: mottled, pallor, urticaria, vesicles Results Laboratory Results: 04/13/19 17:23 04/13/19 17:23 04/13/19 04/13/19 04/13/19 17:23 17:23 17:23 WBC 13.6 H RBC 6.06 H Hgb 18.2 H Hct 54.3 H MCV 90 MCH 30.0 MCHC 33.5 RDW 15.0 H Plt Count 431 Seg Neutrophils % 68.2 Sodium 139.5 Potassium 4.9 Chloride 105 Carbon Dioxide 26 Anion Gap 9 BUN 9 Creatinine 1.05 Est GFR ( Amer) > 60 Glucose 92 Calcium 10.4 H Total Bilirubin 0.7 AST 27 Alkaline Phosphatase 44 Total Protein 7.0 Albumin 4.3 Blood Type A POSITIVE Antibody Screen NEGATIVE Impressions: Abdomen/Pelvis CT 04/13/19 16:38 IMPRESSION: 1. Cannot exclude a low-density left renal mass that is contiguous with a cyst. Recommend ultrasound. A posterior intercostal approach may be helpful. 2. Diverticulosis coli. 3. Wall thickening in the colon and terminal ileum concerning for inflammatory bowel disease. Correlate clinically. Assessment & Plan - Diagnosis (1) Hematochezia Plan: has CT scan that shows diverticulosis given age and acute onset more than likely diverticular bleeding non specific thickening in the terminal ileum but without prior history of , Crohn's would be less likely , moreover it does not present with bleeding he will need colonoscopy it will be scheduled in the am NPO from now prep overnight further recommendations to follow due to his history of chronic pain medications, he will need Propofol sedation Risks, benefits and alternative are discussed he will be admitted by the hospitalist service follow H/H , would anticipate drop with subsequent hydration - Time Time Spent: 50 to 70 Minutes
[2019-04-13] MEDS ORDERED: PEG 3350/NA SULF,BICARB,CL/KCL 4000 ML PO ONE (21:15)
[2019-04-13 21:42] LABS: APPEARANCE,URINE CLEAR; BILIRUBIN,URINE NEGATIVE (NEGATIVE); COLOR,URINE YELLOW; GLUCOSE, URINE NEGATIVE (NEGATIVE); KETONES,URINE NEGATIVE (NEGATIVE); PROTEIN,URINE NEGATIVE (NEGATIVE); URINE SPECIFIC GRAVITY 1.058; UROBILINOGEN,URINE NEGATIVE mg/dL (<2.0)
[2019-04-13] MEDS ORDERED: DIAZEPAM INJ 10 MG/2 ML DISP.SYRIN IV PRN (22:05)
[2019-04-13] MEDS: PANTOPRAZOLE SODIUM 40 MG VIAL IV SCH (22:25)
[2019-04-13] MEDS: MORPHINE SULFATE 10 MG/ML INJ IV PRN (23:21)
[2019-04-14] MEDS ORDERED: METHYLPREDNISOLONE INJ 125 MG/2 ML SDV IV ONE (01:26)
[2019-04-14] MEDS ORDERED: KETOROLAC TROMETHAMINE INJ/PF 30 MG/1 ML SDV IV ONE (01:26)
--- NOTE | 2019-04-14 01:35 | PDOC H&P ---
History of Present Illness Admission Date/PCP: 04/13/19 20:42 [facility] Patient complains of: Rectal bleeding History of Present Illness: ALEXANDRO ORO is a 64 year old male who presented the emergency room with a 1 day history of rectal bleeding. He admits acutely developing bright red rectal bleeding last night following a bowel movement with continued bright red rectal bleeding and hematochezia noted this morning. He admits the coincident sudden onset of an accompanying severe sharp boring type right low back/pelvis pain without radiation and an associated fall, without injury or loss of consciousness, due to the back pain earlier today. The pain is made worse by any attempt at sitting or any movement of his right lower back. He denies other accompanying or associated signs and symptoms. He denies prior similar episodes. He has not identified any aggravating or ameliorating factors for his rectal bleeding. In the emergency room he was found to have a hemoglobin of 18.2 and a stool positive for occult blood. He was seen in consultation by Dr. Rivera in the emergency room at the request of the emergency room physician. Patient will be admitted to the hospital for further evaluation and treatment. Past Medical History Cardiac Medical History: Denies: Coronary Artery Disease, Hyperlipidema, Hypertension Pulmonary Medical History: Denies: Asthma, Chronic Obstructive Pulmonary Disease (COPD) EENT Medical History: Denies: Cataracts, Ears - Hearing aids Neurological Medical History: Denies: Hemorrhagic CVA, Ischemic CVA, Seizures Endocrine Medical History: Denies: Diabetes Mellitus Type 1, Diabetes Mellitus Type 2, Hyperthyroidism, Hypothyroidism, Obesity Renal/ Medical History: Denies: Chronic Kidney Disease, Nephrolithiasis Malignancy Medical History: Reports: None GI Medical History: Denies: Cirrhosis, Diverticulitis, Hepatitis, Peptic Ulcer Disease Musculoskeltal Medical History: Denies: Arthritis, Gout Skin Medical History: Denies: Eczema, Psoriasis Psychiatric Medical History: Reports: Alcohol Dependency, Tobacco Dependency Denies: Substance Abuse Traumatic Medical History: Reports: None Hematology: Denies: Anemia, Bleeding Tendencies Infectious Medical History: Reports: None Past Surgical History Past Surgical History: Reports: Orthopedic Surgery - right rotator Social History Information Source: Patient Lives with: Spouse/Significant other Smoking Status: Current Every Day Smoker - 2 to 3 cigarettes daily Electronic Cigarette use?: No Frequency of Alcohol Use: Heavy - 2 beers daily Hx Recreational Drug Use: No Drugs: None Hx Prescription Drug Abuse: No - Advance Directive Resuscitation Status: Full Code Surrogate healthcare decision maker:: Sybil Noe Family History Family History: denies: CAD, DM, Hypertension, Malignancy Parental Family History Reviewed: Yes Children Family History Reviewed: No Sibling(s) Family History Reviewed.: Yes Medication/Allergy Home Medications: Docusate Sodium [Colace 100 mg Capsule] 100 mg PO DAILY #30 capsule 11/07/14 Oxycodone HCl 5 mg PO Q6 #30 tablet 11/07/14 Hydrocodone/Acetaminophen [[place] 5-325 mg Tablet] 1 tab PO Q8H PRN #20 tablet 12/30/17 Prednisone [Deltasone 10 mg Tablet] 10 mg PO DAILY #18 tablet 12/08/18 Prednisone [Deltasone 10 mg Tablet] 10 mg PO ASDIR PRN #21 tablet 12/23/18 Allergies/Adverse Reactions: codeine [Codeine] Allergy (Intermediate, Verified 12/23/18 10:58) rash Review of Systems Constitutional: ABSENT: chills, fever(s) Eyes: ABSENT: visual disturbances, other - Eye pain Ears: ABSENT: hearing changes, other - Ear pain Nose, Mouth, and Throat: ABSENT: headache(s), mouth pain, sore throat Cardiovascular: ABSENT: chest pain, palpitations Respiratory: ABSENT: cough, dyspnea Gastrointestinal: PRESENT: as per HPI, hematochezia, other - Rectal bleeding. ABSENT: abdominal pain, constipation, diarrhea, nausea, vomiting Genitourinary: ABSENT: dysuria, hematuria Musculoskeletal: PRESENT: as per HPI, back pain. ABSENT: joint swelling, muscle weakness Integumentary: ABSENT: pruritus, rash Neurological: PRESENT: as per HPI, other - Lightheadedness. ABSENT: confusion, convulsions, focal weakness, memory loss, syncope Psychiatric: ABSENT: anxiety, depression Endocrine: ABSENT: cold intolerance, heat intolerance Hematologic/Lymphatic: ABSENT: easy bleeding, easy bruising Allergic/Immunologic: ABSENT: seasonal rhinorrhea Physical Exam Vital Signs: Temp Pulse Resp BP Pulse Ox 97.7 F 64 13 112/74 96 04/13/19 16:05 04/13/19 16:05 04/13/19 20:01 04/13/19 20:01 04/13/19 20:01 Intake & Output 04/11/19 04/12/19 04/13/19 23:59 23:59 23:59 Intake Total 1000 Balance 1000 Weight 76.9 kg General appearance: PRESENT: no acute distress, cooperative Head exam: PRESENT: atraumatic, normocephalic Eye exam: PRESENT: conjunctiva pink. ABSENT: conjunctival injection, scleral icterus Ear exam: PRESENT: normal external ear exam. ABSENT: bleeding, drainage Mouth exam: PRESENT: dry mucosa, neck supple Neck exam: ABSENT: thyromegaly, tracheal deviation Respiratory exam: PRESENT: clear to auscultation juan jose, symmetrical, unlabored Cardiovascular exam: PRESENT: RRR. ABSENT: clicks, gallop, rubs Pulses: PRESENT: normal radial pulses, normal dorsalis pedis pul Vascular exam: PRESENT: normal capillary refill. ABSENT: pallor GI/Abdominal exam: PRESENT: normal bowel sounds, soft Rectal exam: PRESENT: deferred Extremities exam: ABSENT: joint swelling, pedal edema Musculoskeletal exam: PRESENT: tenderness - Severe tenderness of the right sacroiliac joint on palpation and active or passive movement of the right SI joint.. ABSENT: deformity, dislocation Neurological exam: PRESENT: alert, oriented to person, oriented to place, oriented to time, oriented to situation, CN II-XII grossly intact. ABSENT: motor sensory deficit Psychiatric exam: PRESENT: appropriate affect, normal mood Skin exam: PRESENT: dry, intact, warm. ABSENT: jaundice, rash, urticaria Results Laboratory Results: 04/13/19 17:23 04/13/19 17:23 04/13/19 04/13/19 04/13/19 17:23 17:23 17:23 WBC 13.6 H RBC 6.06 H Hgb 18.2 H Hct 54.3 H MCV 90 MCH 30.0 MCHC 33.5 RDW 15.0 H Plt Count 431 Seg Neutrophils % 68.2 Sodium 139.5 Potassium 4.9 Chloride 105 Carbon Dioxide 26 Anion Gap 9 BUN 9 Creatinine 1.05 Est GFR ( Amer) > 60 Glucose 92 Calcium 10.4 H Total Bilirubin 0.7 AST 27 Alkaline Phosphatase 44 Total Protein 7.0 Albumin 4.3 Urine Color Urine Appearance Urine pH Ur Specific [place] Urine Protein Urine Glucose (UA) Urine Ketones Urine Blood Urine RBC (Auto) Blood Type A POSITIVE Antibody Screen NEGATIVE 04/13/19 20:55 WBC RBC Hgb Hct MCV MCH MCHC RDW Plt Count Seg Neutrophils % Sodium Potassium Chloride Carbon Dioxide Anion Gap BUN Creatinine Est GFR ( Amer) Glucose Calcium Total Bilirubin AST Alkaline Phosphatase Total Protein Albumin Urine Color YELLOW Urine Appearance CLEAR Urine pH 6.0 Ur Specific [place] 1.058 Urine Protein NEGATIVE Urine Glucose (UA) NEGATIVE Urine Ketones NEGATIVE Urine Blood NEGATIVE Urine RBC (Auto) 0 Blood Type Antibody Screen Impressions: Abdomen/Pelvis CT 04/13/19 16:38 IMPRESSION: 1. Cannot exclude a low-density left renal mass that is contiguous with a cyst. Recommend ultrasound. A posterior intercostal approach may be helpful. 2. Diverticulosis coli. 3. Wall thickening in the colon and terminal ileum concerning for inflammatory bowel disease. Correlate clinically. Assessment and Plan - Diagnosis (1) Rectal bleeding Is this a current diagnosis for this admission?: Yes (2) Sacroiliitis Is this a current diagnosis for this admission?: Yes (3) Elevated hemoglobin Is this a current diagnosis for this admission?: Yes (4) Leukocytosis Qualifiers: Leukocytosis type: unspecified Qualified Code(s): D72.829 - Elevated white blood cell count, unspecified Is this a current diagnosis for this admission?: Yes (5) Tobacco use disorder, continuous Is this a current diagnosis for this admission?: Yes (6) Alcohol use disorder, mild, abuse Is this a current diagnosis for this admission?: Yes - Plan Summary Summary: Patient is admitted to the medical floor for routine supportive and symptomatic cares. He will be seen in consultation by Dr. Rivera for gastroenterology evaluation. He will initially be treated with IV Protonix 40 mg every 12 hours. He will receive Solu-Medrol 125 mg IV x1 dose and will be evaluated by interventional radiology for possible right sacroiliac joint aspiration and injection. He will use morphine sulfate 2 to 4 mg IV every 2 hours as needed for control of pain. He will use Valium 5 mg IV every 4 hours as needed for anxiety, agitation or restlessness. Serial CBCs and metabolic profiles will be obtained as appropriate. Smoking cessation is advised and counseled briefly at the bedside. Patient will be observed closely for signs of alcohol withdrawal. - Time Time Spent with patient: 15-24 minutes Smoking Cessation Education: 3 to 10 minutes Medications reviewed and adjusted accordingly: Yes Anticipated discharge: Home - Inpatient Certification Based on my medical assessment, after consideration of the patient's comorbidities, presenting symptoms, or acuity I expect that the services needed warrant INPATIENT care.: Yes I certify that my determination is in accordance with my understanding of Medicare's requirements for reasonable and necessary INPATIENT services [42 CFR 412.3e].: Yes Medical Necessity: Need Close Monitoring Due to Risk of Patient Decompensation, Need for Surgery, Risk of Complication if Not Cared For in Hospital, Risk of Diagnosis Which Will Require Inpatient Eval/Care/Monitoring
[2019-04-14] MEDS: MORPHINE SULFATE 10 MG/ML INJ IV PRN ×4 (07:03→21:45)
[2019-04-14] MEDS ORDERED: CHLORPROMAZINE HCL INJ 25 MG/1 ML AMPULE IV PRN (07:04)
[2019-04-14 07:26] LABS: HEMATOCRIT 49.7 % (37.9-51.0); HEMOGLOBIN 16.7 g/dL (13.5-17.0); MEAN CORPUSCULAR HEMOGLOBIN 30.3 pg (27.0-33.4); MEAN CORPUSCULAR HGB CONC 33.5 g/dL (32.0-36.0); MEAN CORPUSCULAR VOLUME 91 fl (80-97); PLATELET COUNT 370 10^3/uL (150-450); RED BLOOD COUNT 5.49 10^6/uL (4.35-5.55); RED CELL DISTRIBUTION WIDTH 14.8 % (11.5-14.0); WHITE BLOOD COUNT 11.5 10^3/uL (4.0-10.5)
[2019-04-14 07:46] LABS: ANION GAP 7 (5-19); BLOOD UREA NITROGEN 11 mg/dL (7-20); C-REACTIVE PROTEIN 15.4 mg/L (<10.0); CALCIUM 9.7 mg/dL (8.4-10.2); CARBON DIOXIDE 29 mmol/L (22-30); CHLORIDE 103 mmol/L (98-107); GLUCOSE 122 mg/dL (75-110); POTASSIUM 4.7 mmol/L (3.6-5.0)
[2019-04-14 08:08] LABS: ERYTHROCYTE SEDIMENTATION RATE 9 mm/hr (0-20)
[2019-04-14] MEDS: DOCUSATE SODIUM 100 MG CAPSULE PO SCH ×2 (10:53→18:46)
[2019-04-14] MEDS: PANTOPRAZOLE SODIUM 40 MG VIAL IV SCH ×2 (10:53→21:42)
[2019-04-14] MEDS: DEXTROSE 5%-LACTATED RINGERS 1,000 ML IV PRN ×3 (10:54→22:00)
[2019-04-14] MEDS ORDERED: PROPOFOL INJ 200 MG/20 ML VIAL IV ONE (13:06)
[2019-04-14] MEDS ORDERED: MEPERIDINE HCL/PF INJ 25 MG/1 ML DISP.SYRIN IV PRN (13:22)
[2019-04-14] MEDS ORDERED: DIPHENHYDRAMINE HCL 50 MG/ML VIAL IV PRN (13:22)
[2019-04-14] MEDS ORDERED: PROMETHAZINE HCL INJ 25 MG/1 ML VIAL IV PRN (13:22)
--- NOTE | 2019-04-14 14:51 | PDOC PROGRESS REPORT ---
Subjective Progress Note for:: 04/14/19 Subjective:: Patient just returned from endoscopy. Is wide awake and conversant. He is unaware of the results. Dictated colonoscopy report is not available yet. He is complaining of his low back pain. Reason For Visit: GI BLEEDING Physical Exam Vital Signs: Temp Pulse Resp BP Pulse Ox 97.7 F 62 18 116/73 94 04/14/19 11:15 04/14/19 11:15 04/14/19 11:15 04/14/19 11:15 04/14/19 11:15 Intake & Output 04/13/19 04/14/19 04/15/19 06:59 06:59 06:59 Intake Total 1000 Balance 1000 Weight 77.5 kg General appearance: PRESENT: no acute distress, cooperative, well-developed, well-nourished Head exam: PRESENT: atraumatic, normocephalic Mouth exam: PRESENT: dry mucosa, tongue midline Respiratory exam: PRESENT: clear to auscultation juan jose, symmetrical, unlabored. ABSENT: rales, rhonchi, tachypnea, wheezes Cardiovascular exam: PRESENT: RRR, +S1, +S2. ABSENT: irregular rhythm, tachycardia GI/Abdominal exam: PRESENT: normal bowel sounds, soft. ABSENT: distended, guarding Rectal exam: PRESENT: deferred Extremities exam: ABSENT: pedal edema Musculoskeletal exam: PRESENT: ambulatory, normal inspection Neurological exam: PRESENT: alert, awake, oriented to person, oriented to place, oriented to time, oriented to situation, CN II-XII grossly intact. ABSENT: motor sensory deficit Psychiatric exam: PRESENT: appropriate affect, normal mood. ABSENT: agitated, anxious Focused psych exam: ABSENT: delusional, restlessness Skin exam: PRESENT: dry, normal color, warm. ABSENT: rash Results Laboratory Results: 04/14/19 06:39 04/14/19 06:39 04/13/19 04/13/19 04/13/19 17:23 17:23 17:23 WBC 13.6 H RBC 6.06 H Hgb 18.2 H Hct 54.3 H MCV 90 MCH 30.0 MCHC 33.5 RDW 15.0 H Plt Count 431 Seg Neutrophils % 68.2 Sodium 139.5 Potassium 4.9 Chloride 105 Carbon Dioxide 26 Anion Gap 9 BUN 9 Creatinine 1.05 Est GFR ( Amer) > 60 Glucose 92 Calcium 10.4 H Magnesium Total Bilirubin 0.7 AST 27 Alkaline Phosphatase 44 C-Reactive Protein Total Protein 7.0 Albumin 4.3 TSH Urine Color Urine Appearance Urine pH Ur Specific [place] Urine Protein Urine Glucose (UA) Urine Ketones Urine Blood Urine RBC (Auto) Blood Type A POSITIVE Antibody Screen NEGATIVE 04/13/19 04/14/19 04/14/19 20:55 06:39 06:39 WBC 11.5 H RBC 5.49 Hgb 16.7 Hct 49.7 MCV 91 MCH 30.3 MCHC 33.5 RDW 14.8 H Plt Count 370 Seg Neutrophils % Sodium 138.9 Potassium 4.7 Chloride 103 Carbon Dioxide 29 Anion Gap 7 BUN 11 Creatinine 0.98 Est GFR ( Amer) > 60 Glucose 122 H Calcium 9.7 Magnesium 2.2 Total Bilirubin AST Alkaline Phosphatase C-Reactive Protein 15.4 H Total Protein Albumin TSH Urine Color YELLOW Urine Appearance CLEAR Urine pH 6.0 Ur Specific [place] 1.058 Urine Protein NEGATIVE Urine Glucose (UA) NEGATIVE Urine Ketones NEGATIVE Urine Blood NEGATIVE Urine RBC (Auto) 0 Blood Type Antibody Screen 04/14/19 06:39 WBC RBC Hgb Hct MCV MCH MCHC RDW Plt Count Seg Neutrophils % Sodium Potassium Chloride Carbon Dioxide Anion Gap BUN Creatinine Est GFR ( Amer) Glucose Calcium Magnesium Total Bilirubin AST Alkaline Phosphatase C-Reactive Protein Total Protein Albumin TSH 1.77 Urine Color Urine Appearance Urine pH Ur Specific [place] Urine Protein Urine Glucose (UA) Urine Ketones Urine Blood Urine RBC (Auto) Blood Type Antibody Screen Impressions: Abdomen/Pelvis CT 04/13/19 16:38 IMPRESSION: 1. Cannot exclude a low-density left renal mass that is contiguous with a cyst. Recommend ultrasound. A posterior intercostal approach may be helpful. 2. Diverticulosis coli. 3. Wall thickening in the colon and terminal ileum concerning for inflammatory bowel disease. Correlate clinically. Assessment and Plan - Diagnosis (1) Hematochezia Is this a current diagnosis for this admission?: Yes Plan: no longer with [facility] (2) Alcohol use disorder, mild, abuse Is this a current diagnosis for this admission?: Yes Plan: no evidence of active issues at this time (3) Elevated hemoglobin Is this a current diagnosis for this admission?: Yes Plan: resolved with IV fluids. Smoking likely a contributing factor (4) Leukocytosis Qualifiers: Leukocytosis type: unspecified Qualified Code(s): D72.829 - Elevated white blood cell count, unspecified Is this a current diagnosis for this admission?: Yes Plan: improving (5) Tobacco use disorder, continuous Is this a current diagnosis for this admission?: Yes Plan: Nicotine patch available (6) Cyst of left kidney Is this a current diagnosis for this admission?: Yes Plan: US ordered for better definition (7) Diverticulosis large intestine w/o perforation or abscess w/o bleeding Is this a current diagnosis for this admission?: Yes Plan: Colonoscopy revealed diverticulosis without active bleeding without diverticulitis (8) Colitis Is this a current diagnosis for this admission?: Yes Plan: Biopsies taken. Once etiology is determined then a treatment plan can be instituted. Will discuss with GI (9) Lumbar disc disease Is this a current diagnosis for this admission?: Yes Plan: Patient has received multiple injections at [facility] in the past. Will need to establish with a new facility as he was discharged from the [facility]. - Plan Summary Summary: Patient is admitted to the medical floor for routine supportive and symptomatic cares. He will be seen in consultation by Dr. Rivera for gastroenterology evaluation. He will initially be treated with IV Protonix 40 mg every 12 hours. He will receive Solu-Medrol 125 mg IV x1 dose and will be evaluated by interventional radiology for possible right sacroiliac joint aspiration and injection. He will use morphine sulfate 2 to 4 mg IV every 2 hours as needed for control of pain. He will use Valium 5 mg IV every 4 hours as needed for anxiety, agitation or restlessness. Serial CBCs and metabolic profiles will be obtained as appropriate. Smoking cessation is advised and counseled briefly at the bedside. Patient will be observed closely for signs of alcohol withdrawal. - Time Time Spent with patient: 15-24 minutes Medications reviewed and adjusted accordingly: Yes Anticipated discharge: Home Within: within 48 hours
--- NOTE | 2019-04-14 16:37 | Operative Report ---
Operative Report DATE OF SURGERY: 04/14/19 Operative Report: The risks, benefits and alternatives of the procedure including the risk of bleeding, perforation requiring surgery have been explained to the patient in detail and informed consent has been obtained. Patient is taken back to the operating room and placed in a left, lateral decubital position. Timeout was called. Propofol medication is administered. Rectal examination is done which did not reveal any masses, tears or fissures. An Olympus videoscope was introduced into the patient's rectum. This carefully advanced all the way to the cecum. Cecum was identified by the usual anatomical landmarks of the ileocecal valve as well as the appendiceal office. Photodocumentation is obtained. The scope was then sequentially pulled back via the various segments of the colon including the ascending colon, hepatic flexure transverse colon, splenic flexure, descending colon and finally into the rectosigmoid portions of the colon. Retroflexion maneuvers performed. Brief op note was handwritten but not seen by the hospitalists. PREOPERATIVE DIAGNOSIS: GI bleeding POSTOPERATIVE DIAGNOSIS: 1. No active GI bleeding noted. 2 biopsies at the terminal ileum but does not appear to be consistent with Crohn's disease. 3 diverticulosis without any evidence of diverticulitis. 4 internal hemorrhoids. 5 there appears to be colitis consistent with possible ischemic colitis status post biopsy OPERATION: Colonoscopy with biopsy SURGEON: LYDIA ELI ANESTHESIA: LMAC TISSUE REMOVED OR ALTERED: As noted above. COMPLICATIONS: None. ESTIMATED BLOOD LOSS: None. INTRAOPERATIVE FINDINGS: As noted above. PROCEDURE: Patient tolerated the procedure well. No immediate postprocedure complications are noted. Patient is sent back to his room in good condition. Resume regular diet Resume previous activity level Weight on biopsies if stable can be discharged from the GI standpoint
--- NOTE | 2019-04-15 02:32 | RADIOLOGY REPORT (SQ) ---
CLINICAL HISTORY: Abnormal CT scan left kidney COMPARISON: None. 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 There is a septated complex cyst in the midpole of the left kidney measuring 5.9 cm. Right kidney is unremarkable. There is no hydronephrosis. IMPRESSION: Septated, slightly complex cyst in the midpole of the left kidney. No hydronephrosis.
[2019-04-15 05:22] LABS: MEAN CORPUSCULAR HEMOGLOBIN 30.5 pg (27.0-33.4); MEAN CORPUSCULAR HGB CONC 33.9 g/dL (32.0-36.0); MEAN CORPUSCULAR VOLUME 90 fl (80-97); PLATELET COUNT 349 10^3/uL (150-450); RED BLOOD COUNT 4.79 10^6/uL (4.35-5.55); RED CELL DISTRIBUTION WIDTH 14.9 % (11.5-14.0); WHITE BLOOD COUNT 10.8 10^3/uL (4.0-10.5)
[2019-04-15 05:23] LABS: HEMOGLOBIN 14.6 g/dL (13.5-17.0)
[2019-04-15 05:41] LABS: ANION GAP 5 (5-19); BLOOD UREA NITROGEN 10 mg/dL (7-20); CALCIUM 9.1 mg/dL (8.4-10.2); CARBON DIOXIDE 27 mmol/L (22-30); CHLORIDE 110 mmol/L (98-107); GLUCOSE 124 mg/dL (75-110)
[2019-04-15] MEDS: MORPHINE SULFATE 10 MG/ML INJ IV PRN ×2 (07:38→10:46)
[2019-04-15] MEDS: PANTOPRAZOLE SODIUM 40 MG VIAL IV SCH (09:12)
[2019-04-15] MEDS: DOCUSATE SODIUM 100 MG CAPSULE PO SCH (09:12)
--- NOTE | 2019-04-15 10:39 | PDOC DISCHARGE SUMMARY ---
Impression - Admit/DC Date/PCP Admission Date/Primary Care Provider: 04/13/19 20:42 Discharge Date: 04/15/19 - Discharge Diagnosis (1) Hematochezia Is this a current diagnosis for this admission?: Yes (2) Alcohol use disorder, mild, abuse Is this a current diagnosis for this admission?: Yes (3) Elevated hemoglobin Is this a current diagnosis for this admission?: Yes (4) Leukocytosis Is this a current diagnosis for this admission?: Yes (5) Tobacco use disorder, continuous Is this a current diagnosis for this admission?: Yes (6) Cyst of left kidney Is this a current diagnosis for this admission?: Yes (7) Diverticulosis large intestine w/o perforation or abscess w/o bleeding Is this a current diagnosis for this admission?: Yes (8) Colitis Is this a current diagnosis for this admission?: Yes (9) Lumbar disc disease Is this a current diagnosis for this admission?: Yes - Assessment Summary: Patient is admitted to the medical floor for routine supportive and symptomatic cares. He will be seen in consultation by Dr. Rivera for gastroenterology evaluation. He will initially be treated with IV Protonix 40 mg every 12 hours. He will receive Solu-Medrol 125 mg IV x1 dose and will be evaluated by interventional radiology for possible right sacroiliac joint aspiration and injection. He will use morphine sulfate 2 to 4 mg IV every 2 hours as needed for control of pain. He will use Valium 5 mg IV every 4 hours as needed for anxiety, agitation or restlessness. Serial CBCs and metabolic profiles will be obtained as appropriate. Smoking cessation is advised and counseled briefly at the bedside. Patient will be observed closely for signs of alcohol withdrawal. - Additional Information Resuscitation Status: Full Code Referrals: LYDIA RIVERA MD [ACTIVE STAFF] - 05/07/19 3:15 pm (this was the first available appt) SOLEDAD THAPA MD [ACTIVE STAFF] - Home Medications: Docusate Sodium [Colace 100 mg Capsule] 100 mg PO BID capsule 04/15/19 Nicotine [Nicoderm 21 mg/24 Hr Transderm Patch] 1 each TD DAILYP PRN patch.td24 04/15/19 Pantoprazole Sodium [Protonix IV Inj 40 mg Vial] 40 mg IV Q12 vial 04/15/19 History of Present Illiness History of Present Illness: ALEXANDRO ORO is a 64 year old male who presented with 24 hours of acute onset bright red blood per rectum. This occurred just after a bowel movement. It persisted through the next morning. He also complains of right lumbosacral pain. He has chronic low back pain and did receive 6 months of injections at the [facility]. The patient was referred to the hospitalist service for admission and ongoing work-up of his GI bleed. Hospital Course Hospital Course: The patient had an unremarkable hospital course. The rectal bleeding stopped on its own. Colonoscopy revealed diverticulosis as well as colitis. Biopsies did not reveal any malignancy but rather inflammatory changes. His CAT scan revealed a left renal cyst. Ultrasound showed a 5 cm cyst but no mass. Physical Exam Vital Signs: Temp Pulse Resp BP Pulse Ox 97.2 F 58 L 18 141/78 H 96 04/14/19 23:29 04/14/19 23:29 04/14/19 19:15 04/14/19 23:29 04/14/19 23:29 Intake & Output 04/14/19 04/15/19 04/16/19 06:59 06:59 06:59 Intake Total 1000 4880 Balance 1000 4880 Weight 77.5 kg 79.5 kg General appearance: PRESENT: no acute distress, cooperative, well-developed Respiratory exam: PRESENT: clear to auscultation juan jose, symmetrical, unlabored. ABSENT: rales, rhonchi, tachypnea, wheezes Cardiovascular exam: PRESENT: RRR, +S1, +S2 GI/Abdominal exam: PRESENT: normal bowel sounds, soft. ABSENT: distended, tenderness Neurological exam: PRESENT: alert, awake, oriented to person, oriented to place, oriented to time, oriented to situation, CN II-XII grossly intact Psychiatric exam: PRESENT: appropriate affect. ABSENT: agitated, anxious Skin exam: PRESENT: dry, normal color, warm. ABSENT: rash Results Laboratory Results: WBC 10.8 10^3/uL (4.0-10.5) H 04/15/19 04:28 RBC 4.79 10^6/uL (4.35-5.55) 04/15/19 04:28 Hgb 14.6 g/dL (13.5-17.0) D 04/15/19 04:28 Hct 43.0 % (37.9-51.0) 04/15/19 04:28 MCV 90 fl (80-97) 04/15/19 04:28 MCH 30.5 pg (27.0-33.4) 04/15/19 04:28 MCHC 33.9 g/dL (32.0-36.0) 04/15/19 04:28 RDW 14.9 % (11.5-14.0) H 04/15/19 04:28 Plt Count 349 10^3/uL (150-450) 04/15/19 04:28 Lymph % (Auto) 21.6 % (13-45) 04/13/19 17:23 Todd % (Auto) 8.1 % (3-13) 04/13/19 17:23 Eos % (Auto) 1.5 % (0-6) 04/13/19 17:23 Baso % (Auto) 0.6 % (0-2) 04/13/19 17:23 Absolute Neuts (auto) 9.3 10^3/uL (1.7-8.2) H 04/13/19 17:23 Absolute Lymphs (auto) 2.9 10^3/uL (0.5-4.7) 04/13/19 17:23 Absolute Monos (auto) 1.1 10^3/uL (0.1-1.4) 04/13/19 17:23 Absolute Eos (auto) 0.2 10^3/uL (0.0-0.6) 04/13/19 17:23 Absolute Basos (auto) 0.1 10^3/uL (0.0-0.2) 04/13/19 17:23 Seg Neutrophils % 68.2 % (42-78) 04/13/19 17:23 ESR 9 mm/hr (0-20) 04/14/19 06:39 Sodium 141.8 mmol/L (137-145) 04/15/19 04:28 Potassium 4.0 mmol/L (3.6-5.0) 04/15/19 04:28 Chloride 110 mmol/L (98-107) H 04/15/19 04:28 Carbon Dioxide 27 mmol/L (22-30) 04/15/19 04:28 Anion Gap 5 (5-19) 04/15/19 04:28 BUN 10 mg/dL (7-20) 04/15/19 04:28 Creatinine 0.84 mg/dL (0.52-1.25) 04/15/19 04:28 Est GFR ( Amer) > 60 (>60) 04/15/19 04:28 Est GFR (MDRD) Non-Af > 60 (>60) 04/15/19 04:28 Glucose 124 mg/dL (75-110) H 04/15/19 04:28 Calcium 9.1 mg/dL (8.4-10.2) 04/15/19 04:28 Magnesium 2.2 mg/dL (1.6-2.3) 04/15/19 04:28 Total Bilirubin 0.7 mg/dL (0.2-1.3) 04/13/19 17:23 Direct Bilirubin 0.0 mg/dL (0.0-0.4) 04/13/19 17:23 Neonat Total Bilirubin Not Reportable 04/13/19 17:23 Neonat Direct Bilirubin Not Reportable 04/13/19 17:23 Neonat Indirect Bili Not Reportable 04/13/19 17:23 AST 27 U/L (17-59) 04/13/19 17:23 ALT 22 U/L (<50) 04/13/19 17:23 Alkaline Phosphatase 44 U/L (38-126) 04/13/19 17:23 C-Reactive Protein 15.4 mg/L (<10.0) H 04/14/19 06:39 Total Protein 7.0 g/dL (6.3-8.2) 04/13/19 17:23 Albumin 4.3 g/dL (3.5-5.0) 04/13/19 17:23 TSH 1.77 uIU/mL (0.47-4.68) 04/14/19 06:39 Urine Color YELLOW 04/13/19 20:55 Urine Appearance CLEAR 04/13/19 20:55 Urine pH 6.0 (5.0-9.0) 04/13/19 20:55 Ur Specific Zebulon 1.058 04/13/19 20:55 Urine Protein NEGATIVE mg/dL (NEGATIVE) 04/13/19 20:55 Urine Glucose (UA) NEGATIVE mg/dL (NEGATIVE) 04/13/19 20:55 Urine Ketones NEGATIVE mg/dL (NEGATIVE) 04/13/19 20:55 Urine Blood NEGATIVE (NEGATIVE) 04/13/19 20:55 Urine Nitrite (Reflex) NEGATIVE (NEGATIVE) 04/13/19 20:55 Urine Bilirubin NEGATIVE (NEGATIVE) 04/13/19 20:55 Urine Urobilinogen NEGATIVE mg/dL (<2.0) 04/13/19 20:55 Leukocyte Esterase Rfl NEGATIVE (NEGATIVE) 04/13/19 20:55 Urine RBC (Auto) 0 /HPF 04/13/19 20:55 Urine WBC (Reflex) 1 /HPF 04/13/19 20:55 Urine Mucus (Auto) RARE /LPF 04/13/19 20:55 Urine Ascorbic Acid NEGATIVE (NEGATIVE) 04/13/19 20:55 POC Stool Occult Blood POSITIVE (NEGATIVE) 04/13/19 17:31 Blood Type A POSITIVE 04/13/19 17:23 Antibody Screen NEGATIVE 04/13/19 17:23 Impressions: Abdomen/Pelvis CT 04/13/19 16:38 IMPRESSION: 1. Cannot exclude a low-density left renal mass that is contiguous with a cyst. Recommend ultrasound. A posterior intercostal approach may be helpful. 2. Diverticulosis coli. 3. Wall thickening in the colon and terminal ileum concerning for inflammatory bowel disease. Correlate clinically. Renal Ultrasound 04/14/19 00:00 IMPRESSION: Septated, slightly complex cyst in the midpole of the left kidney. No hydronephrosis. Plan Health Concerns: Will need to try and determine the exact type of colitis and treatment plan. In addition he will need follow-up on the left renal cyst. He will need a referral to a new pain management clinic for his chronic low back pain and referral to orthopedic surgery as he had a right rotator cuff repair in the past that has been quite painful. Plan of Treatment: Follow-up with Dr. Saleem. Follow-up and establish with a primary care provider who can then manage the repeat ultrasound of the kidney, referral to pain management and referral to orthopedist to review the right shoulder. Goals: Adequate treatment of the colitis. Smoking cessation. Follow-up visits as noted above. Time Spent: Greater than 30 Minutes Stroke Is this a Stroke Patient?: No Acute Heart Failure - Is this a Heart Failure Patient?: No
[2019-04-15 12:48] VITALS: BP 140/74
== END 2019-04-15 13:50 | disposition home or self-care (01) | DRG 379 ==
LOC: ER 16:00 → EH 20:42 → 5 23:00
PROVIDERS: ADMIT Emergency Medicine; ATTEND Emergency Medicine
PROC: 0DBL8ZX Excision of Transverse Colon, Via Natural or Artificial Opening Endoscopic, Diagnostic (ICD-10-PCS; 2019-04-14)
PROC: 0DBB8ZX Excision of Ileum, Via Natural or Artificial Opening Endoscopic, Diagnostic (ICD-10-PCS; principal; 2019-04-14 12:30)
DX: K57.91 Diverticulosis of intestine, part unspecified, without perforation or abscess with bleeding (principal); D72.829 Elevated white blood cell count, unspecified; F10.10 Alcohol abuse, uncomplicated; K64.8 Other hemorrhoids; R71.8 Other abnormality of red blood cells; M51.36 Other intervertebral disc degeneration, lumbar region; K52.9 Noninfective gastroenteritis and colitis, unspecified; N28.1 Cyst of kidney, acquired; F17.210 Nicotine dependence, cigarettes, uncomplicated; G89.29 Other chronic pain; Z91.81 History of falling; Z83.3 Family history of diabetes mellitus; Z82.49 Family history of ischemic heart disease and other diseases of the circulatory system; Z88.5 Allergy status to narcotic agent
CPT/HCPCS: 36415; 45380; 74177; 76775; 80048; 80053; 81001; 811; 83735; 84443; 85025; 85027; 85652; 86140; 86850; 86900; 86901; 88305; 99285; C9113; J1885; J2270; J2704; J2930; J3490; J7030; J7121